=== PATIENT | male | born 1980 | race Caucasian/White ===

== ENCOUNTER 2017-10-01 12:33 | Emergency (ER) | payer SELFPAY ==
[2017-10-01 13:53] VITALS: BP 206/130
--- NOTE | 2017-10-01 14:13 | UC ---
Lower Extremity/Ankle HPI - HPI Summary HPI Summary: Patient urgent care today with chief complaint of left foot pain. Patient states that he has fractured his left fifth MT in the past and now has a sensation numbness and tingling in the fourth and fifth toes beginning at old fracture site. Patient also has complained of pain in the bottom of his foot it 's worse upon arising gets better throughout the day patient reports this is been going on and worsening over the past couple weeks - History of Current Complaint Chief Complaint: UCLowerExtremity Stated Complaint: LFT FOOT PAIN Time Seen by Provider: 10/01/17 14:01 Hx Obtained From: Patient Onset/Duration: Gradual Onset, Still Present Pain Intensity: 7 Pain Scale Used: 0-10 Numeric Aggravating Factor(s): Standing, Ambulation Alleviating Factor(s): Nothing Able to Bear Weight: Yes - Allergies/Home Medications Allergies/Adverse Reactions: Allergies Allergy/AdvReac Type Severity Reaction Status Date / Time No Known Allergies Allergy Verified 10/01/17 13:44 Home Medications: Home Medications NK [No Home Medications Reported] 10/01/17 [History Confirmed 10/01/17] PMH/Surg Hx/FS Hx/Imm Hx Previously Healthy: No Cardiovascular History: Hypertension - Untreated hypertension - Surgical History Surgery Procedure, Year, and Place: L foot surgery. R knee surgery. Testicle removed - Family History Known Family History: Positive: None - Social History Occupation: Employed Full-time - Works as a food checkers and cashiers supervisor overnights Lives: With Family Alcohol Use: None Substance Use Type: Marijuana Substance Use Comment - Amount & Last Used: occasional Smoking Status (MU): Former Smoker Type: Cigarettes Review of Systems Constitutional: Negative Skin: Negative Eyes: Negative ENT: Negative Respiratory: Negative Cardiovascular: Negative Gastrointestinal: Negative Genitourinary: Negative Motor: Negative Neurovascular: Negative Musculoskeletal: Arthralgia - bottom and lateral left foot Neurological: Negative Psychological: Negative Is Patient Immunocompromised?: No All Other Systems Reviewed And Are Negative: Yes Physical Exam Triage Information Reviewed: Yes Appearance: Well-Appearing, Well-Nourished, Obese Vital Signs: Initial Vital Signs Temp 99.4 F 10/01/17 13:38 Pulse 78 10/01/17 13:38 Resp 18 10/01/17 13:38 BP 206/130 10/01/17 13:38 Pulse Ox 95 10/01/17 13:38 Vital Signs Reviewed: Yes Eye Exam: Normal Eyes: Positive: Conjunctiva Clear ENT Exam: Normal ENT: Positive: Normal ENT inspection, Hearing grossly normal. Negative: Trismus , Muffled voice, Hoarse voice, Dental tenderness, Sinus tenderness, Uvula midline Dental Exam: Normal Neck exam: Normal Neck: Positive: Supple, Nontender, No Lymphadenopathy Respiratory Exam: Normal Respiratory: Positive: Chest non-tender, Lungs clear, Normal breath sounds, No respiratory distress, No accessory muscle use Cardiovascular Exam: Normal Cardiovascular: Positive: RRR, No Murmur, Pulses Normal, Brisk Capillary Refill Musculoskeletal Exam: Normal Musculoskeletal: Positive: Strength Intact, ROM Intact, No Edema Neurological Exam: Normal Neurological: Positive: Alert, Muscle Tone Normal Psychological Exam: Normal Skin Exam: Normal Diagnostics - Radiology No standard instances Xray Interpretation: No Acute Changes Radiology Interpretation Completed By: ED Physician, Radiologist - Patient Name : ELMER ZARCO Medical Record#: [id number] Ordering Physician: Erin Corona NP Acct.#: [id number] : 1980 Age: 37 Sex: M Location: [facility] Exam Date : 10/01/17 1409 ADM Status: REG ER Order Information: FOOT LEFT 3+ VWS Accession Number: [id number] CPT: 72168 INDICATION: Chronic left foot pain. Heel pain COMPARISON: CT July 30, 2007 TECHNIQUE: AP, lateral, and oblique views were obtained. FINDINGS: There is no acute fracture. There is a healed fracture involving the base of the fifth metatarsal. There are also healed fractures of the heads of the fourth and fifth metatarsals. The joint spaces and soft tissues are normal IMPRESSION: EVIDENCE OF REMOTE TRAUMA. NO ACUTE FINDINGS. < Electronically signed by Noman Hastings MD in OV> 10/01/17 143 Dictated By : Noman Hastings MD Dictated Date/Time: 10/01/17 1437 Transcribed Date/Time: 10/01/17 1434 Copy to: CC:Erin Corona NP; Queta Cruz MD; No Primary Care Phys,NOPCP Imaging - [facility] Imaging - [facility] Imaging - [facility] [address] [address] ph [phone]) ph ([phone]) ph ([phone]) 1 of 1 Lower Extremity Course/Dx - Course Course Of Treatment: Patient will follow up at the [facility] tomorrow morning. Patient has a ride and is able to get [facility] for this follow-up care. Patient will be given a cam boot for his plantar fasciitis and follow-up information for Dr. Sy should that not resolve with exercise. - Differential Dx/Diagnosis Provider Diagnoses: Elevated blood pressure nonadherent with treatment blood pressure in poor control, left plantar fasciitis Discharge - Sign-Out/Discharge Documenting (check all that apply): Discharge/Admit/Transfer - Discharge Plan Condition: Stable Disposition: HOME Patient Education Materials: Plantar Fasciitis Exercises (GEN), Plantar Fasciitis (ED), DASH Eating Plan (ED), Hypertension (ED) Forms: *Work Release Referrals: [facility] [Outside] - 1 Day Zion Sy MD [Medical Doctor] - 3 Days (re assessment of foot) - Billing Disposition and Condition Condition: STABLE Disposition: Home
--- NOTE | 2017-10-01 14:40 | RAD ---
INDICATION: Chronic left foot pain. Heel pain COMPARISON: CT July 30, 2007 TECHNIQUE: AP, lateral, and oblique views were obtained. FINDINGS: There is no acute fracture. There is a healed fracture involving the base of the fifth metatarsal. There are also healed fractures of the heads of the fourth and fifth metatarsals. The joint spaces and soft tissues are normal IMPRESSION: EVIDENCE OF REMOTE TRAUMA. NO ACUTE FINDINGS.
== END 2017-10-01 14:56 | disposition home or self-care (01) ==
LOC: UCCORT 12:33
DX: R03.0 Elevated blood-pressure reading, without diagnosis of hypertension (principal); Z91.19 Patient's noncompliance with other medical treatment and regimen; M72.2 Plantar fascial fibromatosis; Z87.891 Personal history of nicotine dependence; I10 Essential (primary) hypertension
CPT/HCPCS: 99202; G0463

== ENCOUNTER 2017-12-17 20:02 | Emergency (ER) | payer SELFPAY ==
[2017-12-17] MEDS ORDERED: Albuterol 2.5 MG/3 ML NEB.SOL* (0.083%) INH ONE (21:20)
--- NOTE | 2017-12-17 21:20 | UC ---
UC General HPI - HPI Summary HPI Summary: PT C/O NOT FEELING WELL. HE DESCRIBES THIS A COUGH WITH YELLOW SPUTUM AND YELLOW NASAL DISCHARGE PLUS LOW BACKACHE. TRIAGE ALSO NOTED SOME HEADACHE, VOMITING AND DIARRHEA. HE DENIES FEVER. THE V/D HAS RESOLVED. + WHEEZING. NO CP. NO SOB. - History of Current Complaint Chief Complaint: UCGeneralIllness Stated Complaint: FLU SYMP Time Seen by Provider: 12/17/17 21:06 Hx Obtained From: Patient Pain Intensity: 2 Associated Signs & Symptoms: Positive: Back Pain, Cough, Diarrhea, Headache, Nausea, Vomiting. Negative: Abdominal Pain, Chest Pain, Fever - Allergy/Home Medications Allergies/Adverse Reactions: Allergies Allergy/AdvReac Type Severity Reaction Status Date / Time No Known Allergies Allergy Verified 12/17/17 21:07 PMH/Surg Hx/FS Hx/Imm Hx Cardiovascular History: Hypertension Respiratory History: Asthma - Surgical History Surgery Procedure, Year, and Place: L foot surgery. R knee surgery. Testicle removed - Family History Known Family History: Positive: None - Social History Lives: With Family Alcohol Use: None Substance Use Type: Marijuana Substance Use Comment - Amount & Last Used: occasional Smoking Status (MU): Never Smoked Tobacco Type: Cigarettes - Immunization History Vaccination Up to Date: Yes Review of Systems Constitutional: Negative Skin: Negative Eyes: Negative ENT: Sinus Congestion Respiratory: Cough Cardiovascular: Negative Gastrointestinal: Vomiting, Diarrhea, Nausea Genitourinary: Negative Motor: Negative Neurovascular: Negative Musculoskeletal: Myalgia Neurological: Headache Psychological: Negative Is Patient Immunocompromised?: No All Other Systems Reviewed And Are Negative: Yes Physical Exam Triage Information Reviewed: Yes Appearance: Well-Appearing Vital Signs: Initial Vital Signs Temp 98.9 F 12/17/17 21:08 Pulse 84 12/17/17 21:08 Resp 14 12/17/17 21:08 BP 206/134 12/17/17 21:08 Pulse Ox 96 12/17/17 21:08 Vital Signs Reviewed: Yes Eyes: Positive: Conjunctiva Clear ENT: Positive: Pharynx normal, Nasal congestion, TMs normal - L, TM red - R. Negative: Nasal drainage Neck: Positive: Supple, Nontender, No Lymphadenopathy Respiratory: Positive: No respiratory distress, Decreased breath sounds, Wheezing - SCATTERED Cardiovascular: Positive: RRR, No Murmur Abdomen Description: Positive: Nontender, No Organomegaly, Soft. Negative: CVA Tenderness (R), CVA Tenderness (L), Distended Bowel Sounds: Positive: Present Musculoskeletal: Positive: ROM Intact Neurological: Positive: Alert Psychological: Positive: Age Appropriate Behavior Skin Exam: Normal Diagnostics - Radiology No standard instances Radiology Interpretation Completed By: ED Physician - WET READ NAD Re-Evaluation - Re-Evaluation First Eval Re-Evaluation Time: 21:48 Change: Improved - MUCH IMPROVED AERATION. PT FEELING BETTER. Course/Dx - Course Course Of Treatment: BP 206/134. PT STATES THIS IS HIS NORMAL. HE DID F/U IN [place] DIRECTED AFTER HIS LAST VISIT HERE. HE STATES THEY CALLED IN BP MEDICATION TO [facility] BUT WHEN HE WENT TO [place] IT WAS NOT THERE. HE STATES THEY DID NOT GIVE HIM ANY F/U. ER TRANSFER FOR BP EVALUATION AND TX ADVISED. PT IS REFUSING TO GO DESPITE RISK OR STROKE, KIDNEY DAMAGE AND HEART DAMAGE ALONG WITH WORSENING, DISABILITY AND . HE IS A&O X3 AND ABLE TO MAKE DECISIONS THUS I MUST RESPECT HIS REFUSAL. . I WILL TX HIM FOR OM AND BRONCHITIS. NOT TXING HIS BP IS NOT IN PT'S BEST INTEREST THUS AFTER CASE D/W DR ALVAREZ, I WILL TX WITH LISINOPRIL. NEED TO F/U [facility] JACK STRESSED AND PT AGREES. - Differential Dx - Multi-Symptom Provider Diagnoses: R OM, BRONCHITIS, VOMITING/DIARRHEA(RESOLVED), HYPERTENSION Discharge - Sign-Out/Discharge Documenting (check all that apply): Patient Departure All imaging exams completed and their final reports reviewed: No Studies - Discharge Plan Condition: Stable Disposition: HOME Prescriptions: Albuterol HFA INHALER* [Ventolin HFA Inhaler*] 2 puff INH Q6H #1 mdi Amoxicillin/Clavulanate TAB* [Augmentin TAB 875*] 875 mg PO BID 10 Days #20 tab Lisinopril 10 mg PO DAILY #30 tablet predniSONE TAB* [Deltasone 20 MG TAB*] 40 mg PO DAILY 3 Days #6 tab Patient Education Materials: Ear Infection (ED), Acute Bronchitis (ED), Hypertension (ED) Referrals: KHUSHI Lomas [Medical Doctor] - As Soon As Possible [facility] REFERR[facility] [Outside] - 1 Day Additional Instructions: CALL THE [facility] REFERR[facility] IN THE AM SO THEY CAN HELP YOU GET INTO A PRIMARY DOCTOR SOON POSSIBLE. GO TO THE ER IMMEDIATELY FOR ANY WORSENING OR IF YOU CHANGE YOUR MIND GO SO THEY CAN EVALUATE AND TREAT YOUR BLOOD PRESSURE. - Billing Disposition and Condition Condition: STABLE Disposition: Home
[2017-12-17] MEDS ORDERED: predniSONE TAB* 20 MG PO ONE (21:21)
[2017-12-17] MEDS ORDERED: Amoxicillin/Clavulanate TAB* 875 MG PO ONE (21:54)
[2017-12-17 22:00] VITALS: BP 198/134
--- NOTE | 2017-12-18 08:14 | RAD ---
INDICATION: Cough, congestion. Vomiting and diarrhea. History of testicular cancer. COMPARISON: No relevant prior exams available on the [facility] PACS for comparison. TECHNIQUE: Dual energy PA and routine lateral views of the chest were obtained. REPORT: Clear lungs and pleural spaces. Negative for pneumothorax. The heart, pulmonary vasculature, and mediastinal contours are unremarkable. Negative for free air beneath the diaphragm. Unremarkable osseous structures and soft tissue contours. IMPRESSION: #. No evidence for acute intrathoracic disease. R0
== END 2017-12-17 22:17 | disposition home or self-care (01) ==
LOC: UCCORT 20:02
DX: J40 Bronchitis, not specified as acute or chronic (principal); H66.91 Otitis media, unspecified, right ear; I10 Essential (primary) hypertension; J45.909 Unspecified asthma, uncomplicated
CPT/HCPCS: 71046; 99213; A9270-GY; G0463; J7512

== ENCOUNTER 2019-04-21 15:14 | Emergency (ER) | payer SELFPAY ==
[2019-04-21 16:12] VITALS: BP 200/140
--- NOTE | 2019-04-21 16:35 | UC ---
Upper Extremity HPI - HPI Summary HPI Summary: Pt presents with c/o left arm redness, tenderness, mild swelling, and erythema X 2 days. Pt was seen at [facility] ER on 04/07 an . He was seen on 04/07 and diagnosed with kidney stone. IV place in left antecubital space, on 04/09 pt diagnosed with flu an dgiven IV fluids and antibiotics. Pt does not have PCP , no longer has RX for lisinopril - History of Current Complaint Chief Complaint: UCSkin Stated Complaint: LEFT ARM REDNESS/RASH Time Seen by Provider: 04/21/19 16:21 Hx Obtained From: Patient ?: No Onset/Duration: Gradual Onset, Lasting Days, Still Present Severity Initially: Mild Severity Currently: Moderate Pain Intensity: 5 Location Of Pain: Is Discrete @ - left upper arm, antecubital area to mid biceps and to distal forearm. Character: Dull, Aching Aggravating Factor(s): Movement Alleviating Factor(s): Nothing Associated Signs And Symptoms: Positive: Swelling, Redness, Other - tenderness Related History: Dominant Hand Right - Risk Factors Non-Orthopedic Risk Factor: Negative DVT Risk Factors: Negative Septic Arthritis Risk Factor: Negative Compartment Syndrome Risk Factors: Pain - Allergies/Home Medications Allergies/Adverse Reactions: Allergies Allergy/AdvReac Type Severity Reaction Status Date / Time No Known Allergies Allergy Verified 04/21/19 16:12 Home Medications: Home Medications NK [No Home Medications Reported] 04/21/19 [History Confirmed 04/21/19] PMH/Surg Hx/FS Hx/Imm Hx Previously Healthy: Yes Cardiovascular History: Hypertension - Surgical History Surgical History: None Surgery Procedure, Year, and Place: L foot surgery. R knee surgery. Testicle removed - Family History Known Family History: Positive: None, Hypertension - Social History Occupation: Employed Full-time Lives: With Family Alcohol Use: None Substance Use Type: Marijuana Substance Use Comment - Amount & Last Used: occasional Smoking Status (MU): Former Smoker Type: Cigarettes Have You Smoked in the Last Year: No When Did the Patient Quit Smoking/Using Tobacco: 2013 - Immunization History Vaccination Up to Date: Yes Review of Systems All Other Systems Reviewed And Are Negative: Yes Constitutional: Positive: Negative Skin: Positive: Other - erythema, tenderness, mild swelling, and firm area in bicep Eyes: Positive: Negative ENT: Positive: Negative Respiratory: Positive: Negative Cardiovascular: Positive: Negative Gastrointestinal: Positive: Negative Genitourinary: Positive: Negative Motor: Positive: Negative Neurovascular: Positive: Negative Musculoskeletal: Positive: Edema - mild swelling Neurological: Positive: Negative Psychological: Positive: Negative Is Patient Immunocompromised?: No Physical Exam Triage Information Reviewed: Yes Appearance: Well-Appearing Vital Signs: Initial Vital Signs Temp 99.4 F 04/21/19 16:02 Pulse 100 04/21/19 16:02 Resp 16 04/21/19 16:02 BP 200/140 04/21/19 16:02 Pulse Ox 95 04/21/19 16:02 Vital Signs Reviewed: Yes Eye Exam: Normal ENT: Positive: Hearing grossly normal Dental Exam: Normal Neck exam: Normal Respiratory Exam: Normal Cardiovascular: Positive: Tachycardia Musculoskeletal: Positive: Edema @ - mild swelling to left upper extremity, firm tender area in left bicep , pt c/o tenderness. ERythema extends from mid bicep to distal forearm. Neurological Exam: Normal Psychological Exam: Normal Skin Exam: Other - erythema, to fir upper extremity, mid bicep to distal forearm. Skin: Positive: Other - firm tender area in mid bicep Upper Extremity Course/Dx - Course Course Of Treatment: Pt states that he is unable to get into a PCP, he has not been able to get his HTN medication. I explained my concerns about infection, DVT and unmanaged HTN. I recommended that he go directly to the closest emergency room . Pt verbalized understanding and agreed to plan of care. - Differential Dx/Diagnosis Differential Diagnosis/HQI/PQRI: Other - cellulitis DVT upper extremity phlebitis Provider Diagnosis: Erythema of upper extremity, Hypertension, Tenderness in limb Discharge ED - Sign-Out/Discharge Documenting (check all that apply): Patient Departure All imaging exams completed and their final reports reviewed: No Studies - Discharge Plan Condition: Stable Disposition: HOME-RECOMMEND TO ED Patient Education Materials: Cellulitis (ED), Arm Pain (ED) Referrals: [facility] REFERRAL [Outside] No Primary Care Phys,NOPCP [Primary Care Provider] - Additional Instructions: Please go directly to the closest emergency room for further evaluation and testing. - Billing Disposition and Condition Condition: STABLE Disposition: Home-Recommend to ED - Attestation Statements Provider Attestation: This patient was not seen by me I was available for consult Chart reviewed jerman
== END 2019-04-21 16:47 | disposition home health service (06) ==
LOC: UCCORT 15:14
DX: L53.9 Erythematous condition, unspecified (principal); M79.622 Pain in left upper arm; I10 Essential (primary) hypertension; Z87.891 Personal history of nicotine dependence
CPT/HCPCS: 99212; G0463